=== PATIENT | female | born 1985 | race Caucasian/White ===

== ENCOUNTER 2022-04-20 06:58 | Day surgery (SDC) | payer OTHER ==
[~2022-04-20] VITALS: Ht 172.7 cm; Wt 86.9 kg
[2022-04-20 07:30] VITALS: BP 113/70; PULSE 68; TEMP 97
[2022-04-20] MEDS ORDERED: SINGULAIR 110 MG/TAB PO (07:50)
[2022-04-20] MEDS ORDERED: ZYRTEC 10MG10 MG PO (07:50)
[2022-04-20] MEDS ORDERED: ZANAFLEX 4MG TAB4 MG PO (07:51)
[2022-04-20] MEDS ORDERED: ZOFRAN 4MG T4 MG/TAB PO (07:51)
[2022-04-20] MEDS ORDERED: LYRICA 25MG CAP25 MG PO (07:52)
[2022-04-20] MEDS ORDERED: INDERAL LA 60MG60 MG PO (07:52)
[2022-04-20] MEDS ORDERED: AMITRIPTYLINE H10 M1 PO ×2 (07:53→07:58)
[2022-04-20] MEDS ORDERED: LAMICTAL 25MG T25 MG PO (07:55)
[2022-04-20] MEDS ORDERED: ATIVAN 1MG T1 MG/TAB PO (07:55)
[2022-04-20] MEDS ORDERED: REMERON 15M15 MG/TA1 PO (07:56)
[2022-04-20] MEDS ORDERED: MAXALT10 MG PO (07:56)
[2022-04-20] MEDS ORDERED: SYNTHROID 0.0.025 MG PO (07:57)
[2022-04-20 08:30] VITALS: BP 110/55; PULSE 56; TEMP 98.8
--- NOTE | 2022-04-20 08:30 | NUR ---
PT arrived from procedure and settled by Mario THOMAS. Verbal room report obtained. PT provided Sprite and crackers per request. PT oriented to room and call wylie, within reach. PT is contacting ride on personal cell phone, and said "they need about 45 minutes". RN verbalized understanding and provided another warm blanket. PT denies nausea. NO vomiting.
[2022-04-20 08:45] VITALS: BP 105/72; PULSE 59
--- NOTE | 2022-04-20 08:45 | NUR ---
VSS. PT has finished her crackers and continues to drink. Denies nasuea. NO vomiting. Call wylie remains within reach.
[2022-04-20 09:00] VITALS: BP 106/80; PULSE 56
--- NOTE | 2022-04-20 09:00 | NUR ---
VSS. PT disconnected from fluids and ambulated to bathroom without difficulty. Then she changed into her personal clothes. Call wylie remains within reach.
--- NOTE | 2022-04-20 09:15 | NUR ---
spoke with the PT
--- NOTE | 2022-04-20 09:25 | NUR ---
PT arrived from procedure drowsy but oriented. PT settled by Lisa THOMAS. PT oriented to room and call wylie, within reach. Verbal room report then obtained. PT denies nausea. NO vomiting. PT served a warm muffin and coke per request. VSS.
--- NOTE | 2022-04-20 09:25 | NUR ---
IV discontinued. Catheter tip intact. Pressure bandage applied. NO redness or swelling noted. PT states having abdominal pain, warm blankets applied and pt states some relief. RN recommended a heating pad on a low setting at home. PT verbalized understanding. DC instructions and educational material reviewed with the PT, who verbalized understanding and signed the realted paperwork. Questions answered. Call wylie remains within reach. Awaiting PT ride home.
--- NOTE | 2022-04-20 09:50 | NUR ---
PT dismissed from endo via wheelchair to the PT entrence by Tanna THOMAS. PT has DC packet and personal belongings. PT tranferred into the care of her daughter, who is driving.
== END 2022-04-20 09:50 | disposition home or self-care (01) ==
LOC: SDCO 06:58
DX: K29.50 Unspecified chronic gastritis without bleeding (principal); K29.80 Duodenitis without bleeding; K44.9 Diaphragmatic hernia without obstruction or gangrene; F17.210 Nicotine dependence, cigarettes, uncomplicated; Z20.822 Contact with and (suspected) exposure to COVID-19
CPT/HCPCS: J2704; J7120

== ENCOUNTER → 2022-09-26 | Outpatient (CLI) | payer OTHER ==
[~2022-09-26] MED LIST: AMITRIPTYLINE H10 M1 PO; ATIVAN 1MG T1 MG/TAB PO; INDERAL LA 60MG60 MG PO; LAMICTAL 25MG T25 MG PO; LYRICA 25MG CAP25 MG PO; MAXALT10 MG PO; REMERON 15M15 MG/TA1 PO; SINGULAIR 110 MG/TAB PO; SYNTHROID 0.0.025 MG PO; ZANAFLEX 4MG TAB4 MG PO; ZOFRAN 4MG T4 MG/TAB PO; ZYRTEC 10MG10 MG PO
== END ==
LOC: COL.RAD 09:52
DX: R10.13 Epigastric pain (principal); R11.0 Nausea
CPT/HCPCS: A9537; J2805